=== PATIENT | male | born 1960 | race Caucasian/White ===

== ENCOUNTER 2017-08-30 15:33 | Inpatient (IN) | payer MEDICAID ==
[~2017-08-30] VITALS: Ht 185.4 cm; Wt 84.5 kg
[2017-10-17] VITALS (11 sets, daily range): BP systolic 96–139; BP diastolic 40–80; PULSE 71–100; TEMP 97.8–982
[2017-10-17] MEDS ORDERED: ASPIRIN 81M81 MG/TA2 PO (05:57)
[2017-10-17] MEDS ORDERED: LIPITOR 80MG80 MG PO (05:58)
[2017-10-17] MEDS ORDERED: AMOXICILLIN 8751 TAB PO (05:58)
[2017-10-17] MEDS ORDERED: CELEBREX 200MG200 MG PO (05:59)
[2017-10-17] MEDS ORDERED: LASIX 20MG TABL20 MG PO (05:59)
[2017-10-17] MEDS ORDERED: LIORESAL20 MG PO (05:59)
[2017-10-17] MEDS ORDERED: TOPROL XL 25MG25 MG PO (06:00)
[2017-10-17] MEDS ORDERED: NEURONTIN600 MG/TAB PO (06:00)
[2017-10-17] MEDS ORDERED: DAZIDOX20 MG PO (06:01)
[2017-10-17] MEDS ORDERED: OXYCONTIN 20MG20 MG PO (06:01)
[2017-10-17] MEDS ORDERED: PLAVIX 75MG TAB75 MG PO (06:02)
[2017-10-17] MEDS ORDERED: ALDACTONE 25MG25 M1 PO (06:02)
[2017-10-17] MEDS ORDERED: ZOFRAN 4MG T4 MG/TAB PO (06:03)
[2017-10-18 03:49] VITALS: BP 113/51; PULSE 91; TEMP 99.5
[2017-10-18 06:25] LABS: HEMOGLOBIN 10.7 g/dl (13.5-18.0)
[2017-10-18 06:44] LABS: HEMATOCRIT 35.2 % (42.0-52.0)
[2017-10-18 07:40] VITALS: BP 103/51; PULSE 84; TEMP 99.3
[2017-10-18 11:55] VITALS: BP 99/47; PULSE 58; TEMP 98.1
[2017-10-18 16:35] VITALS: BP 102/57; PULSE 69; TEMP 98.7
[2017-10-18 19:52] VITALS: BP 102/53; PULSE 65; TEMP 98.1
[2017-10-19 03:57] VITALS: BP 106/49; PULSE 60; TEMP 98.3
[2017-10-19 07:16] LABS: HEMOGLOBIN 10.4 g/dl (13.5-18.0)
[2017-10-19 07:20] LABS: HEMATOCRIT 34.1 % (42.0-52.0)
[2017-10-19 07:44] VITALS: BP 107/65; PULSE 70; TEMP 98
[2017-10-19 12:05] VITALS: BP 119/76; PULSE 72; TEMP 98.1
[2017-10-19] MEDS ORDERED: ZANAFLEX CAPSULE4 MG PO (14:13)
[2017-10-19 15:44] VITALS: BP 111/64; PULSE 74; TEMP 98
== END 2017-10-19 17:12 | disposition home or self-care (01) | DRG 498 ==
LOC: JCC 10-17 05:08 → SURG 10-17 07:30 → JCC 10-19 17:12
PROVIDERS: Orthopaedic Surgery; Physician Assistant
PROC: 0QB20ZZ Excision of Right Pelvic Bone, Open Approach (ICD-10-PCS; 2017-10-17)
PROC: 0QB60ZZ Excision of Right Upper Femur, Open Approach (ICD-10-PCS; principal; 2017-10-17 07:30)
DX: M86.9 Osteomyelitis, unspecified (principal); L89.314 Pressure ulcer of right buttock, stage 4; G82.20 Paraplegia, unspecified; F17.210 Nicotine dependence, cigarettes, uncomplicated
CPT/HCPCS: J0690; J2704; J3010

== ENCOUNTER → 2017-09-26 | Outpatient (CLI) | payer MEDICAID | LOC: COL.RAD 11:01 | DX: B19.20 Unspecified viral hepatitis C without hepatic coma (principal) ==

== ENCOUNTER 2017-11-21 14:41 | Inpatient (IN) | payer MEDICAID ==
[~2017-11-21] VITALS: Ht 185.4 cm; Wt 90.0 kg
[~2017-11-21 14:41] MED LIST: ALDACTONE 25MG25 M1 PO; AMOXICILLIN 8751 TAB PO; ASPIRIN 81M81 MG/TA2 PO; CELEBREX 200MG200 MG PO; DAZIDOX20 MG PO; LASIX 20MG TABL20 MG PO; LIORESAL20 MG PO; LIPITOR 80MG80 MG PO; NEURONTIN600 MG/TAB PO; OXYCONTIN 20MG20 MG PO; PLAVIX 75MG TAB75 MG PO; TOPROL XL 25MG25 MG PO; ZANAFLEX CAPSULE4 MG PO; ZOFRAN 4MG T4 MG/TAB PO
[2017-12-04] VITALS (11 sets, daily range): BP systolic 82–124; BP diastolic 42–69; PULSE 56–97; TEMP 98–99.4
[2017-12-04 12:56] LABS: HEMATOCRIT 38.4 % (42.0-52.0); HEMOGLOBIN 11.9 g/dl (13.5-18.0)
[2017-12-04 13:10] LABS: CALCIUM 9.1 mg/dL (8.4-10.2); CREATININE, serum 0.6 mg/dL (0.66-1.25); POTASSIUM 4.4 mmol/L (3.4-5.0)
[2017-12-04] MEDS ORDERED: DAZIDOX20 MG PO (13:56)
[2017-12-04] MEDS ORDERED: NEURONTIN600 MG/TAB PO (13:57)
[2017-12-04] MEDS ORDERED: LIPITOR 80MG80 MG PO (13:57)
[2017-12-04] MEDS ORDERED: LIORESAL20 MG PO (13:58)
[2017-12-04] MEDS ORDERED: OXYCONTIN30 MG PO (13:59)
[2017-12-04] MEDS ORDERED: ALDACTONE 25MG25 M1 PO (14:00)
[2017-12-04] MEDS ORDERED: CELEBREX 200MG200 MG PO (14:03)
[2017-12-04] MEDS ORDERED: TOPROL XL 25MG25 MG PO (14:06)
[2017-12-04] MEDS ORDERED: LASIX 20MG TABL20 MG PO (14:07)
[2017-12-04] MEDS ORDERED: PLAVIX 75MG TAB75 MG PO (14:07)
[2017-12-04] MEDS ORDERED: ZANAFLEX 4MG TAB4 MG PO (14:09)
[2017-12-04] MEDS ORDERED: MIRALAX PA17 GM/Dose PO (14:10)
[2017-12-04] MEDS ORDERED: ASPIRIN 81M81 MG/TA2 PO (14:11)
[2017-12-04] MEDS ORDERED: ATROVENT INHALE14 GM IH (14:12)
[2017-12-05 04:00] VITALS: BP 117/55; PULSE 80; TEMP 97.7
[2017-12-05 07:39] VITALS: BP 116/59; PULSE 70; TEMP 98.3
[2017-12-05 12:42] VITALS: BP 128/56; PULSE 64; TEMP 98.2
[2017-12-05 16:53] VITALS: BP 118/57; PULSE 63; TEMP 98.7
[2017-12-05 21:07] VITALS: BP 100/53; PULSE 62; TEMP 98.7
[2017-12-06 04:19] VITALS: BP 121/57; PULSE 57; TEMP 98.3
[2017-12-06 07:38] VITALS: BP 128/65; PULSE 70; TEMP 97.5
== END 2017-12-06 10:12 | disposition home or self-care (01) | DRG 939 ==
LOC: INPTSU 12-04 11:37 → SURG 12-04 13:30
PROVIDERS: Nurse Anesthetist, Certified Registered; Surgery
PROC: 0D1N4Z4 Bypass Sigmoid Colon to Cutaneous, Percutaneous Endoscopic Approach (ICD-10-PCS; 2017-12-04)
PROC: 0DBM4ZZ Excision of Descending Colon, Percutaneous Endoscopic Approach (ICD-10-PCS; principal; 2017-12-04 13:30)
DX: Z46.89 Encounter for fitting and adjustment of other specified devices (principal); L89.314 Pressure ulcer of right buttock, stage 4; G82.20 Paraplegia, unspecified
CPT/HCPCS: J0690; J1100; J1170; J1885; J2405; J2704; J3010; J7030; J7120

== ENCOUNTER 2019-01-21 12:47 | Day surgery (SDC) | payer MEDICAID ==
[~2019-01-21] VITALS: Ht 185.4 cm; Wt 93.2 kg
[~2019-01-21 12:47] MED LIST changes: +ATROVENT I0.2 MG/1 M IH; +MIRALAX PA17 GM/Dose PO; +OXYCONTIN30 MG PO; +PRILOSEC 20MG20 MG PO; +ZANAFLEX 4MG TAB4 MG PO
[2019-01-21] MEDS ORDERED: AMOXICILLIN 8751 TAB PO (13:28)
[2019-01-21] MEDS ORDERED: OMNICEF 300MG300 MG PO (13:29)
[2019-01-21] MEDS ORDERED: MONODOX100 PO (13:30)
[2019-01-21] MEDS ORDERED: LEVAQUIN 750MG750 M1 PO (13:32)
[2019-01-21] MEDS ORDERED: BACTROBAN22 TOP (13:34)
[2019-01-21] MEDS ORDERED: DITROPAN XL10 MG PO (13:35)
[2019-01-21] MEDS ORDERED: NICODERM C14 MG/PATC TD (13:37)
[2019-01-21 13:55] VITALS: BP 138/65; PULSE 77; TEMP 99
[2019-01-21 16:05] VITALS: BP 147/95; PULSE 70; TEMP 97.8
--- NOTE | 2019-01-21 16:05 | NUR ---
Patient brought back to bay 7 via cart from PACU. Placed on monitors, vital signs stable on room air. Denies pain or nausea. Suprapubic catheter in place, draining bloody tinged urine. Some blood noted to split gauze at site. Requesting soda, muffin, and apple sauce. Safety maintained, call sims within reach, will continue to monitor.
[2019-01-21 16:20] VITALS: BP 158/89; PULSE 87
--- NOTE | 2019-01-21 16:20 | NUR ---
Patient tolerating food and drink without difficulty. Vital signs stable. Will conitnue to monitor.
[2019-01-21 16:25] VITALS: BP 134/68; PULSE 89
[2019-01-21 16:28] VITALS: TEMP 98.7
[2019-01-21 16:40] VITALS: BP 132/66; PULSE 85
--- NOTE | 2019-01-21 17:00 | NUR ---
Discharge instructions reviwed with patient and friend. All questions answered. Some drainage noted around penis and catheter. New split gauze applide. Urine draining into bag. Patient to get dressed at this time.
--- NOTE | 2019-01-21 17:43 | NUR ---
Patient brought down to lobby via wheel chair. Transfered to car with one assist. To be driven home by friend Briseyda.
[2019-01-22] VITALS (376 sets, daily range): O2SAT 79–99
[2019-01-23] VITALS (716 sets, daily range): O2SAT 68–100
== END 2019-01-21 17:43 | disposition home or self-care (01) ==
LOC: SDCO 12:47
DX: N31.2 Flaccid neuropathic bladder, not elsewhere classified (principal); N39.42 Incontinence without sensory awareness; L89.101 Pressure ulcer of unspecified part of back, stage 1; F41.9 Anxiety disorder, unspecified; F32.9 Major depressive disorder, single episode, unspecified; J44.9 Chronic obstructive pulmonary disease, unspecified; G82.20 Paraplegia, unspecified; N52.9 Male erectile dysfunction, unspecified; F17.210 Nicotine dependence, cigarettes, uncomplicated; I25.10 Atherosclerotic heart disease of native coronary artery without angina pectoris; I25.2 Old myocardial infarction; E78.5 Hyperlipidemia, unspecified; G89.29 Other chronic pain; Z86.73 Personal history of transient ischemic attack (TIA), and cerebral infarction without residual deficits; Z95.5 Presence of coronary angioplasty implant and graft; Z88.1 Allergy status to other antibiotic agents; Z80.9 Family history of malignant neoplasm, unspecified; Z88.2 Allergy status to sulfonamides; Z96.642 Presence of left artificial hip joint; Z93.3 Colostomy status; Z79.82 Long term (current) use of aspirin; Z79.02 Long term (current) use of antithrombotics/antiplatelets
CPT/HCPCS: C1769; J0690; J1100; J1885; J2405; J2704; J3010

== ENCOUNTER 2019-01-22 08:42 | Inpatient (IN) | payer MEDICAID ==
[2019-01-22] VITALS (13 sets, daily range): BP systolic 110–158; BP diastolic 53–93; PULSE 86–109; TEMP 97.3–99.7
[~2019-01-22] VITALS: Ht 185.4 cm; Wt 83.9 kg
[~2019-01-22 08:42] MED LIST changes: +BACTROBAN22 TOP; +DITROPAN XL10 MG PO; +LEVAQUIN 750MG750 M1 PO; +MONODOX100 PO; +NICODERM C14 MG/PATC TD; +OMNICEF 300MG300 MG PO
--- NOTE | 2019-01-22 10:50 | NUR ---
Admitted to ICU 2 via EMS from [facility]. Patient opens eyes when name called, just yells "Why am I here?" over and over, does not answer questions appropriately. Settled into bed and monitors applied. Call light in reach. Admission assessment per Radha Modi RN
--- NOTE | 2019-01-22 11:35 | NUR ---
Patient has 3 wounds to buttocks. Repositioned and dressings changed and cultures obtained at this time. Left buttocks wound [id number] with 5.5cm tunneling at 1200 position. Stage 4. Wound bed pink with moderate amount of think, white/green drainage on old dressing. Wet to dry dressing placed at this time. Right proximal buttocks wound [id number], stage 4. Wound bed red, with white discoloration around entire edge of wound. Moderate amout of think, white/green drainage on old dressing. Wet to dry dressing placed at this time. Right distal buttocks would 2.5cmx2.5cm, stage 2. Skin intact on medial side, loose on lateral side with small amout of scabbing noted. No drainage noted, covered with mepilex.
[2019-01-22 12:47] LABS: HEMATOCRIT 37.7 % (42.0-52.0); HEMOGLOBIN 11.7 g/dl (13.5-18.0); MEAN CELL VOLUME 75 fl (80.0-100.0); MEAN CORPUSCULAR HEMOGLOBIN 23 pg (27.0-31.0); MEAN CORPUSCULAR HGB CONC 31 g/dl (33.0-37.0); MEAN PLATELET VOLUME 8.9 fl (7.4-10.4); PLATELET COUNT 415 K/mm3 (130-400); RED BLOOD COUNT 5.03 M/mm3 (4.20-5.60); REDCELL DISTRIBUTION WIDTH-CV 18.8 % (11.5-14.5)
[2019-01-22 12:53] LABS: ALBUMIN 2.7 gm/dL (3.5-5.0); BILIRUBIN,TOTAL 1.1 mg/dL (0.0-1.0); CALCIUM 8.9 mg/dL (8.4-10.2); CREATININE, serum 0.86 (0.66-1.25); POTASSIUM 4.5 mmol/L (3.4-5.0); TOTAL PROTEIN 6.5 gm/dL (6.4-8.2)
[2019-01-22 13:00] LABS: TRICYCLIC ANTIDEPRESS URINE NEGATIVE
[2019-01-22 13:18] LABS: BAND 64 % (0-10); LYMPHOCYTE 10 % (20.0-51.0); NEUTROPHILS 23 % (42.0-75.2); PLATELET ESTIMATE INCREASED (NORMAL)
[2019-01-22 13:19] LABS: ANISOCYTOSIS 1+; HYPOCHROMIA 2+; MICROCYTOSIS 1+; TARGET CELLS 1+
--- NOTE | 2019-01-22 17:08 | NUR ---
Vancomycin Initial Dosing Pharmacy Note Ordering provider: Arnie Indication/duration: Sepsis LABS: est Crcl of 85 mL/min Recommendation: 1.25 g IV q 8hr, will follow daily carlo broussard trough on 01/24. Loading dose: 1.75 grams Maintenance dose: 1.25 grams every 8 hours Trough goal: 15-20 ug/mL
--- NOTE | 2019-01-22 17:50 | NUR ---
PATIENT ANSWER SOME QUESTIONS STILL HAS OUT BURST YELLING
--- NOTE | 2019-01-22 17:50 | NUR ---
PATIENT IS STILL IN A CONFUSED STATE, HAS LOUD VOICE, SUSAN FOR HELP REPEATS
--- NOTE | 2019-01-22 18:05 | NUR ---
PATIENT REMAINS CONFUSED ABOUT PAIN YELLING FOR SISTER
--- NOTE | 2019-01-22 18:15 | NUR ---
PATIENT CALMER SLEEPS MORE AWKENS EASILY, AT TIME YELLS FOR SISTER
--- NOTE | 2019-01-22 18:50 | NUR ---
PATIENT IS QUIET, RESTING
--- NOTE | 2019-01-22 19:05 | NUR ---
RECEIVED REPORT FROM PACO PIEDRA.
--- NOTE | 2019-01-22 21:00 | NUR ---
Patient is moaning in pain intermittently during assessment, although patient is unable to rate pain on a scale of 1-10. Patient is still very confused and disoriented at this time. Patient currently has morphine MC KAY STITCHER pump ordered and at bedside for pain management. Patient is educated on MC KAY STITCHER pump and remote is placed in patient's hand. Vitals at this time are within normal limits. Abdomonal dressing is clean, dry, and intact. Colostomy stoma is pink; no drainage noted at this time. Patient's suprapubic catheter is dependently draining at the bedside. Output is roberto/yellow in color and slightly cloudy. SCDs are in place and functioning properly. Patient's peripheral IV in the left hand is discontinued due to placement of a central line in the RIJ. A second peripheral line is in the right forearm, which is flushed per protocol and left in place. An art line is present in the left wrist. Patient has three ulcers to the bottom; a stage 4 to the left buttock, a stage 3 to the right buttock, and also a stage 2 to the right buttock, all of which are covered with dressings and are clean, dry, and intact. Both feet have some slight edema. No further skin issues noted at this time. Will contact provider for possible pain management alternative until the patient is more alert and oriented to function of MC KAY STITCHER pump. Will continue to monitor.
[2019-01-22 22:03] LABS: ARTERIAL BLD GAS O2 SATURATION 90.2 % (92-100); ARTERIAL BLD GAS TCO2 CT 24.1; ARTERIAL BLOOD GAS BASE EXCESS -0.5 (-2-2); ARTERIAL BLOOD GAS PCO2 34.2 mmHg (35-45); ARTERIAL BLOOD GAS pH 7.45 (7.35-7.45)
[2019-01-23] VITALS (8 sets, daily range): BP systolic 136–163; BP diastolic 63–84; PULSE 92–106; TEMP 98.4–99.7
--- NOTE | 2019-01-23 | NUR ---
Patient is slowly becoming more alert and oriented. With increased orientation, patient's expressions of pain occur more frequently. Patient continues to yell out in pain, stating pain is either in neck, legs, bottom, or abdomen. Kelsie notified; received orders to initiate basal rate on morphine PHYSICIAN SCIENTIST.
[2019-01-23 04:54] LABS: MEAN CELL VOLUME 74 fl (80.0-100.0); MEAN CORPUSCULAR HGB CONC 32 g/dl (33.0-37.0); MEAN PLATELET VOLUME 8.7 fl (7.4-10.4); PLATELET COUNT 357 K/mm3 (130-400); RED BLOOD COUNT 4.22 M/mm3 (4.20-5.60); REDCELL DISTRIBUTION WIDTH-CV 18.5 % (11.5-14.5)
[2019-01-23 04:55] LABS: HEMATOCRIT 31.1 % (42.0-52.0); HEMOGLOBIN 9.9 g/dl (13.5-18.0); MEAN CORPUSCULAR HEMOGLOBIN 23 pg (27.0-31.0)
[2019-01-23 05:01] LABS: ALBUMIN 2.3 gm/dL (3.5-5.0); BILIRUBIN,TOTAL 0.8 mg/dL (0.0-1.0); CALCIUM 8.2 mg/dL (8.4-10.2); CREATININE, serum 0.59 (0.66-1.25); MAGNESIUM 1.7 mg/dL (1.6-2.3); PHOSPHOROUS 2.9 mg/dL (2.5-4.5); POTASSIUM 4.2 mmol/L (3.4-5.0); TOTAL PROTEIN 5.7 gm/dL (6.4-8.2)
[2019-01-23 05:32] LABS: ARTERIAL BLD GAS O2 SATURATION 91.1 % (92-100); ARTERIAL BLD GAS TCO2 CT 23.5; ARTERIAL BLOOD GAS BASE EXCESS -1.8 (-2-2); ARTERIAL BLOOD GAS HCO3 22.4 meq/L (22-26); ARTERIAL BLOOD GAS PCO2 35.6 mmHg (35-45); ARTERIAL BLOOD GAS PO2 62.4 mmHg (80-100); ARTERIAL BLOOD GAS pH 7.42 (7.35-7.45)
[2019-01-23 05:33] LABS: ANISOCYTOSIS 2+; BAND 31 % (0-10); BURR CELLS 1+; HYPOCHROMIA 2+; LYMPHOCYTE 6 % (20.0-51.0); MICROCYTOSIS 1+; NEUTROPHILS 61 % (42.0-75.2); PLATELET ESTIMATE NORMAL (NORMAL)
--- NOTE | 2019-01-23 05:50 | NUR ---
Patient is now more alert and oriented x 3. Patient has increased complaints of pain. Patient is capable of using numeric pain scale at this point and rates pain as 10/10 in abdomen. Morphine MOTOR VEHICLE COMPLIANCE ANALYST dose is changed to 1.5 mg every six minutes per Kelsie's orders.
--- NOTE | 2019-01-23 07:05 | NUR ---
Report given to PACO Smith.
--- NOTE | 2019-01-23 07:37 | NUR ---
Report received from Zari ANTONIO and care resumed.
--- NOTE | 2019-01-23 09:14 | NUR ---
Dr Arnold in to see pt at this time.
--- NOTE | 2019-01-23 09:45 | NUR ---
Dr Soto and Dr Saba in to see pt.
--- NOTE | 2019-01-23 10:50 | NUR ---
Dr Klein in to see pt at this time.
--- NOTE | 2019-01-23 15:30 | NUR ---
PATIENT ARRIVED TO ROOM 326 FROM ICU. PATIENT SETTELED INTO ROOM.
--- NOTE | 2019-01-23 15:43 | NUR ---
Report called to Yaneth ANTONIO on surgical floor. Pt taken by bed with chart and belongings to room 326. Update given.
--- NOTE | 2019-01-23 16:00 | NUR ---
SEE SHIFT ASSESSMENT.
--- NOTE | 2019-01-23 19:48 | NUR ---
Pt resting in bed. No distress noted. Rating pain 2-3/10 in abdomen. SALES EXPERT pump with basal rate infusing to R IJ TL central line. Suprapubic catheter and allen catheter to dependent drainage. Pt has midline abdominal incision with mahendra intact. Stage IV pressure ulcer noted to L buttock with tunneling- leaking purulent draining. Dressing changed. Pt turned. Pressure ulcers x2 on R buttock with intact dressings. Respirations even and unlabored. Lungs clear. O2@2L via NC- 93%. EtCO2 WNL. VSS. Pt is alert and oriented at this time, but does have periods of confusion. 2+ edema noted to bilateral feet. 1+ edema in BLE. Pulses equal. No further needs noted.
--- NOTE | 2019-01-23 20:18 | NUR ---
Pts PCS syringe changed. Pt reufuses to be turned at this time.
[2019-01-24] VITALS (10 sets, daily range): BP systolic 129–156; BP diastolic 62–81; PULSE 71–94; TEMP 98.2–99.5
--- NOTE | 2019-01-24 | NUR ---
Oral suctioning set up by RT to manage pts secretions.
--- NOTE | 2019-01-24 06:11 | NUR ---
Pt resting this AM. He has had minimal sleep throughout the night. He is alert and able to answer orientation questions but often gets confused at times. Pt pushed REGISTRAR ASSISTANT pump button less in the second half the shift, after he allowed us to turn him on his side. Denies further needs.
[2019-01-24 06:49] LABS: MEAN CELL VOLUME 75 fl (80.0-100.0); MEAN CORPUSCULAR HGB CONC 31 g/dl (33.0-37.0); PLATELET COUNT 341 K/mm3 (130-400); RED BLOOD COUNT 4.12 M/mm3 (4.20-5.60); REDCELL DISTRIBUTION WIDTH-CV 18.3 % (11.5-14.5)
[2019-01-24 06:52] LABS: HEMATOCRIT 30.7 % (42.0-52.0); HEMOGLOBIN 9.5 g/dl (13.5-18.0); MEAN CORPUSCULAR HEMOGLOBIN 23 pg (27.0-31.0)
[2019-01-24 07:03] LABS: ALBUMIN 2.3 gm/dL (3.5-5.0); BILIRUBIN,TOTAL 0.8 mg/dL (0.0-1.0); CALCIUM 8.4 mg/dL (8.4-10.2); CREATININE, serum 0.5 (0.66-1.25); POTASSIUM 3.6 mmol/L (3.4-5.0); TOTAL PROTEIN 5.7 gm/dL (6.4-8.2)
[2019-01-24 07:30] LABS: ANISOCYTOSIS 1+; BAND 33 % (0-10); BURR CELLS 1+; LYMPHOCYTE 7 % (20.0-51.0); NEUTROPHILS 56 % (42.0-75.2); PLATELET ESTIMATE NORMAL (NORMAL)
--- NOTE | 2019-01-24 10:11 | NUR ---
Vancomycin Follow-up Pharmacy Note Current regimen: VANCO 1.25G Q8H Vancomycin trough: 12.7 Adjustments: GOAL TROUGH 15-20. INCREASE TO VANCO 1.5G Q8H. TROUGH 01/25 @ 1745
--- NOTE | 2019-01-24 13:45 | NUR ---
ASHA met with the patient and his sister, Cindy to discuss a discharge plan. The patient lives alone in [place]. 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 The patient reports he receives care from a private duty person, Merly Mcintosh and Ashu Panda visits patient 2x a day to help with exercises. Ashu Larios is not a physical therapist. The patient's PCP is Dr. Danielle and patient receives medications from Lisa Riojas. Patient reports that Merly picks up his medications and can insurance covers his medications The patient reports he has support from [employer] for his wheelchair as needed. The patient reports he goes the [facility] 3x a week for wound care. PT/OT at the very least recommend home health but SNF would be preferred. The patient refused both. He reports he as plenty of help. However, the patient did inquire about weekend help at home. The patient has a POC named Ainsley at [address] [place] [address]. The patient is interested in connecting his caregiver, Merly connect with them. ASHA attempted to contact [address] [place] [address], they were closed this day, left message. services executive will continue to follow to ensure a safe discharge.
--- NOTE | 2019-01-24 20:25 | NUR ---
Lying in bed on right side. Has pain in back, chronic issue for patient. Explained use of MARINA DRY DOCK MANAGER pump to help decrease pain. Dressing to bilat buttocks stage 4 pressure ulcers CDI. Buttocks red. 2-3+ bilt LE extremity edema noted. Mid abd incision with edges well approximated, dressing to suprapubic catheter area CDI. Suprapubic and ureteral catheters patent draining clear yellow urine. Patient denies further needs at this time.
--- NOTE | 2019-01-24 23:00 | NUR ---
Lying in bed with eyes open. Patient looking for a "plastic piece" that he thought was on his bedside table. No plastic piece seen. Patient able to tell me who he is, where he is at, and approximate date. Vital signs obtained and normal, patient able to look at machine and read off all vitals and say that they look good. Complains of pain, 10/10 in back that he describes as sharp. Reminded the patient that he does have his LAWN MOWER REPAIRER that he can use for pain. Patient presses button at this time. Suprapubic and ureteral catheters patent draining clear yellow urine. Placed wash cloth under tubing per patient request so that the tubing was not pressing into leg. Offered to place pillow between legs but patient declines. Does not want to resposition. Patient denies further needs at this time.
[2019-01-25] VITALS (8 sets, daily range): BP systolic 152–172; BP diastolic 70–97; PULSE 84–95; TEMP 98.1–99.6
--- NOTE | 2019-01-25 01:47 | NUR ---
Lying in bed with eyes closed. Open eyes and says that he heard someone in his room. Explain to the patient that I was just hanging his antibiotic. Patient asks what happened that he is in the hospital and the need to be on antibiotics. Explain to the patient the course of events that lead to hospitalization and why he is receiving antibiotics. Patient verbalizes understanding and says that he remembers some of it but not all. Denies further needs at this time.
--- NOTE | 2019-01-25 05:09 | NUR ---
Lying in bed with eyes closed. Eyes open when patient hears nurse in room. Patient continues to complain of pain in back and was encouraged to use CHIROPRACTIC PRACTICE MANAGER. Respositioned patient in bed. Suprapubic and urethral catheters patent draining clear yellow urine. Patient alert and oriented but says he continues to feel a plastic piece, attempts to show nurse plastic between fingers and there is nothing there, describes it as a plastic string. Explained that the morphine can sometimes have this effect on patients. Patient denies further needs at this time.
[2019-01-25 07:03] LABS: MEAN CELL VOLUME 74 fl (80.0-100.0); MEAN CORPUSCULAR HGB CONC 31 g/dl (33.0-37.0); MEAN PLATELET VOLUME 8.9 fl (7.4-10.4); PLATELET COUNT 353 K/mm3 (130-400)
[2019-01-25 07:08] LABS: HEMATOCRIT 31.9 % (42.0-52.0); HEMOGLOBIN 9.8 g/dl (13.5-18.0); MEAN CORPUSCULAR HEMOGLOBIN 23 pg (27.0-31.0)
[2019-01-25 07:13] LABS: ALBUMIN 2.2 gm/dL (3.5-5.0); BILIRUBIN,TOTAL 1.1 mg/dL (0.0-1.0); CALCIUM 7.9 mg/dL (8.4-10.2); CREATININE, serum 0.5 (0.66-1.25); POTASSIUM 3.1 mmol/L (3.4-5.0); TOTAL PROTEIN 5.6 gm/dL (6.4-8.2)
[2019-01-25 08:17] LABS: BAND 18 % (0-10); EOSINOPHIL 1 % (0-4); LYMPHOCYTE 5 % (20.0-51.0); NEUTROPHILS 73 % (42.0-75.2)
[2019-01-25 08:18] LABS: ANISOCYTOSIS 1+; HYPOCHROMIA 1+; PLATELET ESTIMATE NORMAL (NORMAL)
--- NOTE | 2019-01-25 10:10 | NUR ---
Patient alert and oriented, answers questions appropriately. See assessment. Abdomen soft, non tender, non distended. Bowel sounds hyperactive x4 quads. +Flatus. +Stool in ostomy. Supra pubic catheter in place, dressing changed. No redness or drainage at suprapubic site. Midline incision with edges well approximated, mahendra intact. No redness or drainage at incision site. Ostomy site pink and protruding. Tello catheter in place and draining clear yellow urine. Decubitus ulcer to left buttock with pink granulation tissue noted, dressing changed. Mepilex applied to coccyx and right buttock. Right IJ with dressing intact, ports x3 flush well, blood return noted. SPRING COVERER infusing, settings verified against MAR. No c/o at this time.
--- NOTE | 2019-01-25 20:15 | NUR ---
Patient in bed, lying on right side. HS meds given at this time. Suprapubic drsg changed at this time. Colostomy bag changed at shift change, soft brown stool noted. Harper to midline, HOGSHEAD STOCK CLERK. Tello to BSD with yellow urine. Patient is a paraplegic. Has pitting edema to bilateral lower legs to feet. Drsg to left buttock intact. Has right IJ with LR infusing at 100cc/hr without redness or swelling. All three lumens flushed with good blood return. Patient is alert and oriented.
[2019-01-26] VITALS (7 sets, daily range): BP systolic 126–155; BP diastolic 61–91; PULSE 65–110; TEMP 98.1–99.2
--- NOTE | 2019-01-26 00:39 | NUR ---
Medicated with Oxycodone 10mg po for back pain. Asks when he will get regular food, provided with ice cream at this time.
--- NOTE | 2019-01-26 03:00 | NUR ---
Pt resting quietly at this time.
[2019-01-26 06:30] LABS: BASO % 0.1 % (0.0-2.0); EOS # 0.7 (0.0-0.7); EOS % 4.2 % (0-4.0); GRAN # 11.5 (1.4-6.5); GRAN % 74.9 % (42.2-75.2); HEMOGLOBIN 10.2 g/dl (13.5-18.0); LYMPH # 1.8 (1.2-3.4); LYMPH % 11.4 % (20.0-51.0); MEAN CELL VOLUME 74 fl (80.0-100.0); MEAN CORPUSCULAR HEMOGLOBIN 23 pg (27.0-31.0); MEAN CORPUSCULAR HGB CONC 31 g/dl (33.0-37.0); MONO # 1.3 (0.1-0.6); MONO % 8.6 % (1.7-9.3); PLATELET COUNT 391 K/mm3 (130-400); RED BLOOD COUNT 4.44 M/mm3 (4.20-5.60); REDCELL DISTRIBUTION WIDTH-CV 18.4 % (11.5-14.5)
[2019-01-26 06:42] LABS: ALBUMIN 2.2 gm/dL (3.5-5.0); BILIRUBIN,TOTAL 0.8 mg/dL (0.0-1.0); CREATININE, serum 0.6 (0.66-1.25); POTASSIUM 3.4 mmol/L (3.4-5.0); TOTAL PROTEIN 5.6 gm/dL (6.4-8.2)
--- NOTE | 2019-01-26 10:34 | NUR ---
Patient alert and oriented, answers questions appropriately. See assessment. RIJ in place, dressing intact, good blood return noted x3 lumens. Abdomen soft, non tender, non distended. Bowel sounds hyperactive x4 quads. Midline incision with mahendra intact, no redness or drainage noted. Ostomy site pink and protruding. Suprapubic site with no redness or drainage noted, dressing changed. Suprapubic catheter draining clear yellow urine. Tello catheter in place and draining clear yellow urine. Mepilex in place to coccyx and bilateral buttocks, refuses them to be changed at this time. No c/o at this time.
--- NOTE | 2019-01-26 14:39 | NUR ---
Dr Peña notified of consult.
--- NOTE | 2019-01-26 17:55 | NUR ---
Tello catheter discontinued per drs order.
--- NOTE | 2019-01-26 19:55 | NUR ---
Patient awakens and begins to complain of neck, back and stomach pain. Whimpering and asking for meds. Given scheduled meds at this time. Offered to reposition patient which he refuses at this time. Drsg changed to right neck IJ, all lumens flushed with good blood return. Dressing changed to left suprapubic, minimal drainage noted, site without redness. [place] intact to midline incision, COAL YARD SUPERVISOR. Colostomy with soft brown stool noted. Suprapubic output roberto, clear urine.
--- NOTE | 2019-01-26 21:35 | NUR ---
Has moderate amount of green emesis. Medicated with Zofran at this time.
--- NOTE | 2019-01-26 21:51 | NUR ---
SPOKE WITH DR ALBRECHT REGARDING PATIENT HAVING EMESIS, ORDER TO DECREASE DIET BACK TO FULL LIQUID.
--- NOTE | 2019-01-26 22:30 | NUR ---
Pt finally ready to turn on right side. Mepilex replaced to left buttock decub due to drainage.
--- NOTE | 2019-01-27 00:27 | NUR ---
Patient awake, whimpering and thinks he might throw up again. Emharsh treviño provided, HOB elevated.
--- NOTE | 2019-01-27 01:08 | NUR ---
medicated with Oxycodone 10mg po for abd pain 11/05.
--- NOTE | 2019-01-27 02:00 | NUR ---
Patient assisted to sitting up position in bed. Reports pain in stomach feels like he needs to eat. Advised against any food at this time as he has had emesis and persistent nausea this shift. Ice chips provided.
--- NOTE | 2019-01-27 02:49 | NUR ---
Discouraged anything by mouth than ice chips. Bowel sounds hypoactive, there is stool in colostomy bag.
[2019-01-27 03:37] VITALS: BP 151/85; PULSE 98; TEMP 98.4
--- NOTE | 2019-01-27 03:43 | NUR ---
Patient falling asleep sitting up in bed. Has 30cc of bile emesis at this time.
--- NOTE | 2019-01-27 05:40 | NUR ---
Medicated with Oxycodone 10mg po with Protonix po. Rates pain 8/10 to abdomen with burning sensation.
[2019-01-27 07:20] VITALS: BP 150/79; PULSE 87; TEMP 97.9
[2019-01-27 07:30] LABS: HEMOGLOBIN 10.7 g/dl (13.5-18.0); MEAN CELL VOLUME 75 fl (80.0-100.0); MEAN CORPUSCULAR HEMOGLOBIN 23 pg (27.0-31.0); MEAN CORPUSCULAR HGB CONC 30 g/dl (33.0-37.0); MEAN PLATELET VOLUME 8.9 fl (7.4-10.4); PLATELET COUNT 374 K/mm3 (130-400); RED BLOOD COUNT 4.71 M/mm3 (4.20-5.60); REDCELL DISTRIBUTION WIDTH-CV 18.7 % (11.5-14.5)
[2019-01-27 07:42] LABS: CALCIUM 8.3 mg/dL (8.4-10.2); CREATININE, serum 0.7 (0.66-1.25); POTASSIUM 3.4 mmol/L (3.4-5.0)
[2019-01-27 07:43] LABS: HEMATOCRIT 35.2 % (42.0-52.0)
--- NOTE | 2019-01-27 08:00 | NUR ---
PATIENT IS ORIENTED BUT DROWSY. VSS. PATIENT TAKES SCHEDULED PAIN MEDS FOR CHRONIC PAIN AND IS OFTEN DROWSY. PATIENT IS A PARAPLEGIC WITH STAGE 4 COCCYX SORE WITH MEPILEX DRESSING INPLACE. CHRONIC SUPERPUBIC MORSE TO DD WITH FLORA, SEDIMENT URINE NOTED. RIGHT IJ TO INT. PATIENT GETTING IV ABX, SEE APR. COLOSTOMY IN MOD AMOUNTS OF SOFT FORMED STOOL NOTED. PATIENT IS HEP C POSITIVE. SR ON TELE IN 80'S. PT/OT/ST. PATIENT NEEDS TURNED BUT OFTEN REFUSES CERTAIN CARES. PATIENT IS STUBBORN AT TIMES. VOMITED 1800CC OF DARK GREEN BILE. PHYSICIAN NOTIFIED. SEE ORDERS.
[2019-01-27 08:49] LABS: EOSINOPHIL 5 % (0-4); LYMPHOCYTE 5 % (20.0-51.0); NEUTROPHILS 81 % (42.0-75.2)
[2019-01-27 08:50] LABS: BURR CELLS 2+
[2019-01-27 08:51] LABS: HYPOCHROMIA 2+; POIKILOCYTOSIS 2+
[2019-01-27 08:52] LABS: ANISOCYTOSIS 1+; MICROCYTOSIS 1+; OVALOCYTES 1+; PLATELET ESTIMATE NORMAL (NORMAL)
--- NOTE | 2019-01-27 09:35 | NUR ---
HOSPITALIST CARE TEAM ROUNDING. SEE ORDERS.
[2019-01-27 11:53] VITALS: BP 143/81; PULSE 102; TEMP 98.1
[2019-01-27 16:00] VITALS: BP 139/51; PULSE 86; TEMP 98.5
--- NOTE | 2019-01-27 16:40 | NUR ---
TALKING WITH PATIENT ON PHONE ABOUT CT RESULTS. SEE ORDERS.
--- NOTE | 2019-01-27 17:00 | NUR ---
CALLED PATIENTS SISTER AND GAVE PATIENT STATUS UPDATE. ANSWERED QUESTIONS.
--- NOTE | 2019-01-27 19:30 | NUR ---
Report received. Assumed care for quarantine inspector. A&Ox3. Assessment complete. VS stable. Denies pain but currently has vomitted 50mls dark green fluid. Central line to right IJ infusing LR@75ml/hr without difficulty. Colostomy with scant amount of dark green fluid. Suprapubic cath with yellow cloudy urine. SCDs bilat. Plan of care discussed for this shift to include NPO/pain control/HS meds. Verbalizes udnerstanding and denies questions or concerns. Call light in reach. Bed in low position/wheels locked. Will monitor.
[2019-01-27 20:00] VITALS: BP 144/99; PULSE 104; TEMP 98.2
--- NOTE | 2019-01-27 21:30 | NUR ---
Dressing to left buttock stage IV decub changed at this time. Noted to have large amount of drainage to old dressing as well as drainage on the chux underneath. New Mirapex dressing applied. Bactriban ointment applied to small dime size wounds to bilat lower extremities. States he wants them covered with bandaids. Done per request. Did refuse HS dose of pain medication stating "Doc thinks this is what is causing my issues so I dont want them." Does deny pain. Will monitor.
[2019-01-27 23:54] VITALS: BP 143/60; PULSE 91; TEMP 98.2
[2019-01-28 03:48] VITALS: BP 137/56; PULSE 93; TEMP 98.3
[2019-01-28 06:19] LABS: MEAN CELL VOLUME 75 fl (80.0-100.0); MEAN CORPUSCULAR HGB CONC 31 g/dl (33.0-37.0); MEAN PLATELET VOLUME 9.1 fl (7.4-10.4); PLATELET COUNT 400 K/mm3 (130-400); RED BLOOD COUNT 4.27 M/mm3 (4.20-5.60); REDCELL DISTRIBUTION WIDTH-CV 18.6 % (11.5-14.5)
[2019-01-28 06:25] LABS: HEMATOCRIT 31.8 % (42.0-52.0); HEMOGLOBIN 9.8 g/dl (13.5-18.0); MEAN CORPUSCULAR HEMOGLOBIN 23 pg (27.0-31.0)
[2019-01-28 06:35] LABS: CREATININE, serum 0.69 (0.66-1.25)
--- NOTE | 2019-01-28 07:00 | NUR ---
Reported onto PACO [place].
[2019-01-28 07:19] LABS: BAND 7 % (0-10); EOSINOPHIL 4 % (0-4); LYMPHOCYTE 10 % (20.0-51.0); NEUTROPHILS 72 % (42.0-75.2); PLATELET ESTIMATE NORMAL (NORMAL)
[2019-01-28 07:30] VITALS: BP 141/74; PULSE 88; TEMP 99.3
--- NOTE | 2019-01-28 08:40 | NUR ---
Patient in bed resting. Alert and oriented x 3. Shift assessment complete. Suprapubic catheter in place to allen with dependent drainage with cloudy yellow urine in bag. Midline and transverse incision with mahendra intact. Bandaids to BLE CDI. Mepliex to left buttock and sacrum in place. Edema to BLE noted. SCDs to BLE. Bowel sounds hypoactive. Patient denies passing gas through colostomy; appliance intact. Denies further needs at this time.
--- NOTE | 2019-01-28 09:00 | NUR ---
Shift assessment completed. Patient stated abdominal pain /. Remains NPO and denies nausea. O2 nasal cannula running at 2L. Central line to right subclavian intact with no signs of phlebitis or infiltration. Tele intact. Hypoactive bowel sounds in all 4 quadrants. Abdominal mahendra CDI. Suprapubic catheter intact with scant red drainage. SCDs to BLE. Edema present in BLE 2+.
--- NOTE | 2019-01-28 09:30 | NUR ---
Patient turned off to right side.
[2019-01-28 10:50] VITALS: BP 140/72; PULSE 87; TEMP 98.1
--- NOTE | 2019-01-28 10:53 | NUR ---
Reported off to PACO [place].
--- NOTE | 2019-01-28 11:25 | NUR ---
Notified Sara ALEXANDER, patients blood sugar is 62, changed fluids per orders. Will continue to monitor.
--- NOTE | 2019-01-28 13:19 | NUR ---
Myesha from wound clinic in to see patient, redressed ulcer to left buttock.
--- NOTE | 2019-01-28 14:08 | NUR ---
Lathe Tender attended clinical rounds with the team. Hospitalist discussed need for post acute rehab and patient is adamant that he will not go to a snf facility but is open to placement at [facility]. SW met with patient and presented Medicare.gov list of snf facilities. Patient states he wants to go to [facility]. SW presented patient choice form and patient selected [facility] and provided signature. SW placed form in chart. SW faxed referral to [facility] and left message for Madhavi, Senior Training And Development Rep at [facility]. SW to continue to follow.
[2019-01-28 16:29] VITALS: BP 139/62; PULSE 111; TEMP 98.8
--- NOTE | 2019-01-28 19:10 | NUR ---
Patient has done well throughout the day. Repositioned patient throughout the day as allowed by patient. Fluids infusing per order to right IJ. Denies further needs at this time. Reported off to shift stacker.
[2019-01-28 19:33] VITALS: BP 138/69; PULSE 102; TEMP 100.4
--- NOTE | 2019-01-28 19:50 | NUR ---
Pt had Vanc level of 31.69, called lab and they came to re-draw. Will await results and notify pharmacy
--- NOTE | 2019-01-28 20:55 | NUR ---
Pt resting in bed. Does c/o back pain. PRN oxy given along with other PM meds. Alert and oriented with VSS. Has pressure ulcer on L buttock covered with merplex dressing and 5 small ulcers on BLE, which were covered with bactroban and bandaid. Denies needs at this time. Call light within reach, will continue to monitor
--- NOTE | 2019-01-28 20:59 | NUR ---
Called pharmacy per request with Vanc of 29.29, per pharmacy, hold vanc elle and she will order new labs for tomorrow.
--- NOTE | 2019-01-28 21:20 | NUR ---
Vancomycin Follow-up Pharmacy Note Current regimen: Vancomycin 1.5 gm IV q8h Vancomycin trough: 31.69 Adjustments: Will hold Vancomycin and check a random Vancomycin level with 01/29/19 morning labs. Pharmacy will continue to monitor and restart a Vancomycin regimen based on levels.
[2019-01-28 23:29] VITALS: BP 121/68; PULSE 113; TEMP 98.8
--- NOTE | 2019-01-29 01:30 | NUR ---
Colostomy bag with no output.
--- NOTE | 2019-01-29 02:43 | NUR ---
pt sitting up in bed shaking side rails off and on. patient noted to doze off for a few seconds and wake back up.
[2019-01-29 03:56] VITALS: BP 113/45; PULSE 81; TEMP 99.4
--- NOTE | 2019-01-29 03:57 | NUR ---
Seziure precaution pads put in place as patient keeps falling asleep sitting up and having jerking/spasm movements of head and arms.
--- NOTE | 2019-01-29 06:06 | NUR ---
Pt sleeping in bed, unable to keep eyes open. Nursing staff has turned pt q2 hours. Currently laying on right side.
--- NOTE | 2019-01-29 07:00 | NUR ---
Reported onto PACO Sullivan.
[2019-01-29 07:10] VITALS: BP 137/49; PULSE 92; TEMP 98.8
[2019-01-29 07:15] LABS: MEAN CELL VOLUME 75 fl (80.0-100.0); MEAN CORPUSCULAR HGB CONC 31 g/dl (33.0-37.0); MEAN PLATELET VOLUME 9.3 fl (7.4-10.4); PLATELET COUNT 431 K/mm3 (130-400); RED BLOOD COUNT 3.92 M/mm3 (4.20-5.60); REDCELL DISTRIBUTION WIDTH-CV 18.8 % (11.5-14.5)
[2019-01-29 07:23] LABS: HEMATOCRIT 29.4 % (42.0-52.0); MEAN CORPUSCULAR HEMOGLOBIN 23 pg (27.0-31.0)
[2019-01-29 07:24] LABS: CALCIUM 7.9 mg/dL (8.4-10.2); CREATININE, serum 0.72 (0.66-1.25); POTASSIUM 3.6 mmol/L (3.4-5.0)
[2019-01-29 07:53] LABS: BAND 4 % (0-10); EOSINOPHIL 1 % (0-4); LYMPHOCYTE 4 % (20.0-51.0); NEUTROPHILS 85 % (42.0-75.2)
[2019-01-29 07:54] LABS: ANISOCYTOSIS 1+; HYPOCHROMIA 3+; PLATELET ESTIMATE INCREASED (NORMAL)
--- NOTE | 2019-01-29 08:00 | NUR ---
PATIENT IS A&O BUT VERY EMOTIONAL THIS AM. PATIENT IS CRYING TO HIS SISTER ON THE PHONE. HE IS JUST TIRED ON BEING IN THE HOSPITAL, TIRED OF BEING SICK, AND TIRED ON NOT BEING ABLE TO EAT. PATIENT REPORTS DECREASED OUTPUT FROM HIS COLOSTOMY IN THE LAST 24 HOURS. PATIENT HAS INTERMITTENT NAUSEA, NO REPORTED THIS AM. BOWL SOUNDS ARE HYPOACTIVE. SUPER PUBIC MORSE TO DD WITH YELLOW SEDIMENT URINE NOTED. IV FLUIDS INFUSING VIA PUMP INTO RIGHT IJ. PATIENT ALSO RECEIVING IV ABX. GAVE AM MEDS WITH SIPS. PATIENT VERY CONCERNED ABOUT DECREASED STOOL. GAVE SMALL DOSE OF MIRILAX PER ORDERS. PATIENT TOLERATED WELL. HEAD TO TOE ASSESSMENT COMPLETE. NURSING SPENT A LOT OF TIME ENCOURAGING PATIENT AND LETTING HIM KNOW ITS NORMAL TO GET FRUSTERATED AND ITS OKAY TO CRY. PATIENT WANTED TO LEAVE AMA BUT AGREES HE WILL STAY AND KEEP TRYING. PATIENT WANTING TO GET OUT OF BED. HIS IS A PARAPLEGIC, PT AT BEDSIDE TO ASSIST HIM TO BEDSIDE CHAIR. PATIENT HAPPY ABOUT GETTING UP. NO OTHER NEEDS AT THIS TIME. STUDENT NURSE WORKING WITH PATIENT, SEE CHARTING.
--- NOTE | 2019-01-29 10:30 | NUR ---
HOSPITALIST CARE TEAM ROUNDING. SEE ORDERS.
--- NOTE | 2019-01-29 10:31 | NUR ---
Shift assessment completed. Pt stated back pain 10/05. Pt dozing off for a few seconds then wakes back up. Remains NPO denies nausea. Tele intact. O2 nasal cannula running at 2L. Central line to right subclavian intact, no signs of phlebitis or infiltration. Abdominal mahendra CDI. Suprapubic catheter intact to allen with cloudy yellow urine. Bandaids to BLE CDI.
[2019-01-29 10:34] VITALS: BP 116/69; PULSE 107
[2019-01-29 10:53] VITALS: BP 113/52; PULSE 96; TEMP 98
--- NOTE | 2019-01-29 11:12 | NUR ---
Reported off to PACO Sullivan.
[2019-01-29 11:23] LABS: INR 1.4 (0.8-3.0); PROTHROMBIN TIME 16.4 SECONDS (9.7-12.8)
--- NOTE | 2019-01-29 11:50 | NUR ---
Vancomycin Follow-up Pharmacy Note Current regimen: Dosing based on levels Vancomycin random level: 19.31 Adjustments: Will restart Vancomycin 1.25 gm IV q12h. Pharmacy will check a Vancomcyin trough prior to 3rd dose on 12/31/18. Will continue to [facility].
--- NOTE | 2019-01-29 12:10 | NUR ---
PATIENT GOING DOWN FOR THORACENTESIS.
[2019-01-29 15:22] VITALS: BP 120/70; PULSE 71; TEMP 98.7
--- NOTE | 2019-01-29 16:50 | NUR ---
Oral Surgery Physician faxed updates to Madhavi at [facility]. SW to continue to follow.
--- NOTE | 2019-01-29 18:30 | NUR ---
PATIENT SUDDENLY SAT UP IN BED AFTER BEING LETHARGIC ALL AFTERNOON AND STARTED SCREAMING "HELP ME". PATIENT WAS DIFFICULT TO CALM OR GET ANY DIRECT ANSWERS FROM. HE DID FINALLY SAY HIS BACK WAS HURTING WHICH IS CHRONIC FOR HIM. PATIENT WAS LEANING OVER BED RAILS AND REQUIRED SEVERAL NURSES TO KEEP HIM IN BED. PATIENT WAS GRABBING AT NURSES AND SCREAMING FOR HELP. HOSPITALIST CALLED. VSS. PATIENT STILL HAVING NO OUTPUT FROM COLOSTOMY. PATIENT HAS BEEN NPO FOR 2 DAYS. CLINDIMIX INFUSING INTO RIGHT IJ. PATIENT PUTTING LOTS OF PRESSURE ON HIS COLOSTOMY BAG AND SUPERPUBIC MORSE. MORSE SITE STARTED LEAKING A SMALL AMOUNT AROUND MORSE SITE. ABD IS DISTENDED AND RED AROUND INCISION MARLINE. BOWL SOUNDS ARE VERY HYPO. PATIENT DENIES N/V. LAB AT BEDSIDE. CT AT BEDSIDE. RT UNABLE TO GET ABG'S.
[2019-01-29 18:40] VITALS: BP 128/62; PULSE 106
--- NOTE | 2019-01-29 19:25 | NUR ---
PATIENT BACK IN ROOM FROM CT. TAPER PRINTED CIRCUIT LAYOUT NURSE AT BEDSIDE. AWAITING RESULTS. NOTIFIED.
[2019-01-29 19:30] LABS: HEMATOCRIT 29.5 % (42.0-52.0); MEAN CELL VOLUME 74 fl (80.0-100.0); MEAN CORPUSCULAR HEMOGLOBIN 23 pg (27.0-31.0); MEAN CORPUSCULAR HGB CONC 31 g/dl (33.0-37.0); MEAN PLATELET VOLUME 9.1 fl (7.4-10.4); PLATELET COUNT 403 K/mm3 (130-400); RED BLOOD COUNT 3.98 M/mm3 (4.20-5.60); REDCELL DISTRIBUTION WIDTH-CV 18.8 % (11.5-14.5)
[2019-01-29 19:39] LABS: ALBUMIN 2.4 gm/dL (3.5-5.0); BILIRUBIN,TOTAL 0.4 mg/dL (0.0-1.0); CREATININE, serum 0.7 (0.66-1.25); POTASSIUM 3.8 mmol/L (3.4-5.0); TOTAL PROTEIN 5.9 gm/dL (6.4-8.2)
[2019-01-29 19:45] LABS: BAND 2 % (0-10); EOSINOPHIL 7 % (0-4); LYMPHOCYTE 12 % (20.0-51.0); METAMYELOCYTE 1 % (0-0); NEUTROPHILS 71 % (42.0-75.2); PLATELET ESTIMATE NORMAL (NORMAL)
[2019-01-29 19:47] LABS: MICROCYTOSIS 1+
[2019-01-30] VITALS: BP 145/90; PULSE 104; TEMP 98.4
[2019-01-30 03:46] VITALS: BP 157/78; PULSE 101; TEMP 98.4
[2019-01-30 06:44] LABS: BASO % 0.2 % (0.0-2.0); EOS # 0.5 (0.0-0.7); EOS % 4.2 % (0-4.0); GRAN # 9.6 (1.4-6.5); LYMPH # 1.3 (1.2-3.4); LYMPH % 10.8 % (20.0-51.0); MEAN CELL VOLUME 76 fl (80.0-100.0); MEAN CORPUSCULAR HGB CONC 30 g/dl (33.0-37.0); MEAN PLATELET VOLUME 9.4 fl (7.4-10.4); MONO # 0.7 (0.1-0.6); PLATELET COUNT 436 K/mm3 (130-400); REDCELL DISTRIBUTION WIDTH-CV 19.1 % (11.5-14.5)
[2019-01-30 06:54] LABS: HEMATOCRIT 29.5 % (42.0-52.0); HEMOGLOBIN 8.8 g/dl (13.5-18.0); MEAN CORPUSCULAR HEMOGLOBIN 23 pg (27.0-31.0)
[2019-01-30 06:56] LABS: CALCIUM 8.1 mg/dL (8.4-10.2); CREATININE, serum 0.61 (0.66-1.25); POTASSIUM 3.7 mmol/L (3.4-5.0)
[2019-01-30 08:00] VITALS: BP 127/67; PULSE 103; TEMP 99
--- NOTE | 2019-01-30 10:00 | NUR ---
Patient has been resting in bed this morning. Patient rouses with some effort and falls back asleep quickly. Patient rouses enough to take his PO medications, but vomits a small amount with some medications evident in the emesis. Patient then states his nausea is better, but complains of being cold. Gave patient warmed blankets and patient goes back to sleep. Suprapubic catheter to left abdomen, insertion site is well approximated and free of redness or drainage, suture intact; dressing is CDI. Midline incision is well approximated and TEOFILO, mahendra intact. Colostomy to right abdomen, no output yet this shift. Patient and deny further needs at this time, call light within reach.
[2019-01-30 10:22] LABS: ALBUMIN 2.3 gm/dL (3.5-5.0); BILIRUBIN,TOTAL 0.4 mg/dL (0.0-1.0); CALCIUM 8.1 mg/dL (8.4-10.2); CREATININE, serum 0.63 (0.66-1.25); MAGNESIUM 1.8 mg/dL (1.6-2.3); PHOSPHOROUS 3.5 mg/dL (2.5-4.5); POTASSIUM 3.7 mmol/L (3.4-5.0); TOTAL PROTEIN 5.8 gm/dL (6.4-8.2)
[2019-01-30 10:29] LABS: PRE ALBUMIN 3.9 mg/dL (17.6-36.0)
--- NOTE | 2019-01-30 12:00 | NUR ---
PATIENT SLEEPING SOUNDLY WITH SISTER AT BEDSIDE. NO NEEDS.
[2019-01-30 12:30] VITALS: BP 138/70; PULSE 98; TEMP 98
--- NOTE | 2019-01-30 13:54 | NUR ---
Craft Demonstrator attended rounds with the team. ASHA faxed updates to [facility] and contacted [facility] who advised she will need an estimated discharge date due to patient payer source, which is [employer]. [facility] states she will need prior authorization. Madhavi also reports with patient payer source, he may be responsible for the cost of oral medications during stay at . ASHA will continue to follow.
[2019-01-30 15:46] VITALS: BP 119/70; PULSE 114; TEMP 100.7
--- NOTE | 2019-01-30 16:11 | NUR ---
Barrel Builder contacted [facility] ALEXAND[facility] who advised there was no target discharge date at this point but that she would provide SW update to provide to [facility]. SW met with patient and patient's sister, Cindy to provide update on placement to [facility] and the potential for out of pocket costs per communication with Madhavi, Lawyer Probate at [facility]. SW to continue to follow.
[2019-01-31] VITALS (7 sets, daily range): BP systolic 98–138; BP diastolic 53–71; PULSE 68–99; TEMP 98.1–100.1
--- NOTE | 2019-01-31 02:11 | NUR ---
PATIENT DOING WELL TONIGHT. ALERT AND ORIENTED. TOOK SCHEDULED MEDICATIONS WITH SIPS OF WATER. ULCER TO BUTTOCKS WAS DRAINING AND PATIENT REQUESTED DRESSING TO BE CHANGED. WET TO DRY DRESSING WITH MEPOPLEX AND TEGADERM DONE. MEPOPLEX PLACED ON LOWER BACK FOR STAGE 2 PRESSURE ULCER. DRESSING TO SUPRAPUBIC CATHETER CHANGED. REDNESS NOTED TO MIDLINE INCISION WITH MARLINE. BOWEL SOUNDS HYPOACTIVE. C/O PAIN TO LOWER BACK. REQUESTS REPOSITIONING FREQUENTLY. NO FURTHER NEEDS AT THIS TIME. WILL CONTINUE TO MONITOR.
[2019-01-31 07:17] LABS: BASO % 0.2 % (0.0-2.0); EOS # 0.3 (0.0-0.7); EOS % 3.3 % (0-4.0); GRAN # 7.3 (1.4-6.5); GRAN % 72.8 % (42.2-75.2); HEMATOCRIT 28.6 % (42.0-52.0); HEMOGLOBIN 8.5 g/dl (13.5-18.0); LYMPH # 1.4 (1.2-3.4); LYMPH % 14.4 % (20.0-51.0); MEAN CELL VOLUME 76 fl (80.0-100.0); MEAN CORPUSCULAR HEMOGLOBIN 23 pg (27.0-31.0); MEAN CORPUSCULAR HGB CONC 30 g/dl (33.0-37.0); MEAN PLATELET VOLUME 9.6 fl (7.4-10.4); MONO # 0.9 (0.1-0.6); MONO % 8.6 % (1.7-9.3); PLATELET COUNT 448 K/mm3 (130-400); RED BLOOD COUNT 3.75 M/mm3 (4.20-5.60); REDCELL DISTRIBUTION WIDTH-CV 19.1 % (11.5-14.5)
[2019-01-31 07:23] LABS: ALBUMIN 2.2 gm/dL (3.5-5.0); BILIRUBIN,TOTAL 0.4 mg/dL (0.0-1.0); CALCIUM 7.8 mg/dL (8.4-10.2); CREATININE, serum 0.52 (0.66-1.25); MAGNESIUM 1.9 mg/dL (1.6-2.3); PHOSPHOROUS 3.3 mg/dL (2.5-4.5); POTASSIUM 3.5 mmol/L (3.4-5.0); TOTAL PROTEIN 5.7 gm/dL (6.4-8.2)
--- NOTE | 2019-01-31 08:59 | NUR ---
Patient resting in bed at this time. Patient is alert and oriented this morning, answers questions appropriately. Suprapubic catheter in place, no drainage noted form insertion site, gauze dressing CDI and suture intact. Colostomy to right abomen, no drainage visible and ostomy appliance in place with a good seal; small amount of stool visible at the end of the colon, has not entered bag yet. Central line to right IJ in place, sutures intact and dressing CDI. Patient was able to take oral medications today with no nausea or vomiting. Midline incision is well approximated, mahendra intact and DRUM TESTER; there is a small amount of redness on staple line and a scant amount of dried yellow drainage around a few of the mahendra. Abdomen remains distended and firm, bowel sounds are hypoactive in all quadrants. Patient states he is not ready to turn so his dressing on coccyx can be changed, will check again at a later time. Patient denies further needs, call light within reach.
--- NOTE | 2019-01-31 16:33 | NUR ---
Lightout Examiner attended rounds with the team. Patient likely will be in hospital through the weekend. SW met with patient who advised he was concerned about potential out of pocket costs if he went to [facility]. ASHA faxed updates to [facility] and spoke with Madhavi who advised she would continue to look into potential out of pocket costs and provide SW update when she had one. ASHA contacted patient's sister, Cindy to provide update. SW to continue to follow.
--- NOTE | 2019-01-31 18:39 | NUR ---
Patient has done well throughout the day. Changed dressing to ulcer, wet to dry. Bandaids to bialteral lower extremitied changed in the AM. TPN has been infusing per orders. Patient states he has been passing gas throughout the day, small amount of stool present in ostomy appliance. Suprapubic catheter to allen bag with clear yellow urine in place. Tolerating clear liquid diet without difficulties. Reported off to electrical electronics technician.
--- NOTE | 2019-02-01 01:30 | NUR ---
PATIENT DOING WELL THROUGHOUT NIGHT. TOOK SCHEDULED MEDICATIONS WITHOUT DIFFICULTY. STAGE 4 ULCER TO BUTTOCK IS DRESSED, NO DRAINAGE NOTED. MEPOPLEX TO COCCYX. SUPRAPUBIC DRESSING CDI, NO DRAINAGE NOTED. BOWEL SOUNDS HYPOACTIVE. TURNING PER PATIENT REQUEST. NO FURTHER NEEDS AT THIS TIME. WILL CONTINUE TO MONITOR.
[2019-02-01 02:57] VITALS: BP 120/53; PULSE 73; TEMP 98.8
[2019-02-01 06:22] LABS: BASO % 0.2 % (0.0-2.0); EOS # 0.4 (0.0-0.7); EOS % 4.6 % (0-4.0); GRAN # 5.7 (1.4-6.5); GRAN % 67.4 % (42.2-75.2); LYMPH # 1.4 (1.2-3.4); MEAN CELL VOLUME 76 fl (80.0-100.0); MEAN CORPUSCULAR HGB CONC 30 g/dl (33.0-37.0); MEAN PLATELET VOLUME 9.4 fl (7.4-10.4); MONO # 0.9 (0.1-0.6); PLATELET COUNT 432 K/mm3 (130-400); RED BLOOD COUNT 3.86 M/mm3 (4.20-5.60)
[2019-02-01 06:34] LABS: HEMATOCRIT 29.4 % (42.0-52.0); HEMOGLOBIN 8.7 g/dl (13.5-18.0); MEAN CORPUSCULAR HEMOGLOBIN 23 pg (27.0-31.0)
[2019-02-01 06:42] LABS: ALBUMIN 2.3 gm/dL (3.5-5.0); BILIRUBIN,TOTAL 0.4 mg/dL (0.0-1.0); CALCIUM 7.9 mg/dL (8.4-10.2); CREATININE, serum 0.48 (0.66-1.25); MAGNESIUM 2.1 mg/dL (1.6-2.3); PHOSPHOROUS 3.1 mg/dL (2.5-4.5); POTASSIUM 4.3 mmol/L (3.4-5.0); TOTAL PROTEIN 5.7 gm/dL (6.4-8.2)
[2019-02-01 08:23] VITALS: BP 128/63; PULSE 91; TEMP 98.2
[2019-02-01 12:00] VITALS: BP 126/61; PULSE 72; TEMP 98.3
[2019-02-01 15:47] VITALS: BP 123/58; PULSE 81; TEMP 98.7
[2019-02-01 20:42] VITALS: BP 147/69; PULSE 81; TEMP 98.2
[2019-02-02 04:00] VITALS: BP 142/64; PULSE 84; TEMP 98.5
--- NOTE | 2019-02-02 06:24 | NUR ---
PT IN BED. 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 PRN OXYCODONE FOR PAIN.
[2019-02-02 07:00] LABS: CALCIUM 8.1 mg/dL (8.4-10.2); CREATININE, serum 0.51 (0.66-1.25); PHOSPHOROUS 3.3 mg/dL (2.5-4.5); POTASSIUM 4.3 mmol/L (3.4-5.0)
[2019-02-02 07:47] VITALS: BP 122/76; PULSE 90; TEMP 98.5
[2019-02-02 09:09] LABS: BASO % 0.3 % (0.0-2.0); EOS # 0.4 (0.0-0.7); EOS % 3.7 % (0-4.0); GRAN # 6.8 (1.4-6.5); GRAN % 67.3 % (42.2-75.2); LYMPH # 1.8 (1.2-3.4); LYMPH % 17.3 % (20.0-51.0); MEAN CELL VOLUME 76 fl (80.0-100.0); MEAN CORPUSCULAR HGB CONC 30 g/dl (33.0-37.0); MEAN PLATELET VOLUME 10.2 fl (7.4-10.4); MONO # 1.1 (0.1-0.6); PLATELET COUNT 525 K/mm3 (130-400); RED BLOOD COUNT 4.19 M/mm3 (4.20-5.60); REDCELL DISTRIBUTION WIDTH-CV 18.9 % (11.5-14.5)
[2019-02-02 09:17] LABS: HEMATOCRIT 31.7 % (42.0-52.0); HEMOGLOBIN 9.5 g/dl (13.5-18.0); MEAN CORPUSCULAR HEMOGLOBIN 23 pg (27.0-31.0)
[2019-02-02 11:19] VITALS: BP 118/50; PULSE 90; TEMP 98.9
[2019-02-02 16:05] VITALS: BP 118/58; PULSE 91; TEMP 98.3
--- NOTE | 2019-02-02 18:00 | NUR ---
Afebrile. Complained of leg spasms and back pain. Repositions in bed with assist. Pain improved with scheduled and prn meds. Eating well.
[2019-02-02 20:12] VITALS: BP 135/64; PULSE 92; TEMP 97.9
--- NOTE | 2019-02-02 21:30 | NUR ---
Pt. laying in bed at this time. Pt. is A&OX3, assessment complete. TLC to rt. IJ CDI. Pt. dressings go rt. and lt. buttock pressure ulcers CDI. Pt. denies pain or other needs, call light within reach.
[2019-02-03] VITALS (7 sets, daily range): BP systolic 111–123; BP diastolic 45–89; PULSE 95–110; TEMP 97.8–100
--- NOTE | 2019-02-03 06:45 | NUR ---
awake resting in bed, bedside shift report received from PACO Urena
--- NOTE | 2019-02-03 08:30 | NUR ---
resting in bed after breakfast, am meds given, physical therapy in to work with patient
--- NOTE | 2019-02-03 09:10 | NUR ---
Dr Whipple and care team in to see patient
--- NOTE | 2019-02-03 09:32 | NUR ---
repositioned to left side per pateint's request
--- NOTE | 2019-02-03 10:04 | NUR ---
ASHA attended clinical rounds. The patient is ready to discharge today. ASHA notified Madhavi at [facility]. Madhavi requested updates and reports that she will send these off to insurance for prior-auth. ASHA faxed Madhavi updates. Madhavi reports that the patient would be responsible for all oral meds. ASHA informed the patient. The patient verbalized understanding and states that he is agreeable to this. ASHA contacted and updated the patient's niece, Solange. Solange reports that the patient's sister, Cindy, is in the hospital; but that they would still be able to provide transportation for the patient. ASHA awaiting prior-auth and will continue to follow.
--- NOTE | 2019-02-03 11:00 | NUR ---
resting in bed on right side watching TV
--- NOTE | 2019-02-03 12:00 | NUR ---
sitting up in bed and has had lunch
--- NOTE | 2019-02-03 13:00 | NUR ---
dressing to left buttock pressure ulcer changed, has large amount drainage on dressing, dressing removed and ulcer packed with wet gauze, covered with ABD and taped in place, has pink foam dressing an gauze to right buttock and these are CD&I and left in place
--- NOTE | 2019-02-03 14:25 | NUR ---
c/o increased back pain and requesting pain med, medicated with roxicodone 10mg po, resting on right side
--- NOTE | 2019-02-03 15:18 | NUR ---
Madhavi, at [facility], reports that they have received authorization from the patient's insurance; but would now not be able to take him until tomorrow. ASHA informed the clinical team of this. ASHA updated the patient and his niece, Solange. Solange reports that they will have transportation for the patient tomorrow. SW to continue to follow.
--- NOTE | 2019-02-03 17:44 | NUR ---
sitting up in bed eating supper, states his stomach has started hurting bad, will finish eating and then assess abdomen
--- NOTE | 2019-02-03 18:00 | NUR ---
had supper and laid back in bed to assess abdomen, is slightly distended but soft and has small amount stool in colostomy
--- NOTE | 2019-02-03 19:07 | NUR ---
bedside shift report given to PACO Villarreal
--- NOTE | 2019-02-04 00:53 | NUR ---
Assessment complete. Repositioned. Denies needs.
--- NOTE | 2019-02-04 02:39 | NUR ---
02/03/19 @2034 c/o nausea, belching. Requested basin "in case I throw up". PRN Zofran admin for nausea.
--- NOTE | 2019-02-04 02:41 | NUR ---
@0115 called for "help". Vomitted in basin @400 ml liquid c some food particles. PRN Zofran admin. Stated he felt "a lot better" post emesis.
[2019-02-04 04:09] VITALS: BP 118/67; PULSE 97; TEMP 98.8
--- NOTE | 2019-02-04 06:06 | NUR ---
02/03/19 @2154 PRN acetaminophen admin for fever.
--- NOTE | 2019-02-04 07:31 | NUR ---
Report from Cherelle ANTONIO>
[2019-02-04 07:49] VITALS: BP 128/82; PULSE 108; TEMP 98
[2019-02-04] MEDS ORDERED: AMOXICILLIN 8751 TAB PO (07:52)
[2019-02-04] MEDS ORDERED: TYLENOL 325MG325 MG PO (07:58)
[2019-02-04] MEDS ORDERED: COLACE 100100 MG/CAP PO (07:59)
[2019-02-04] MEDS ORDERED: SENOKOT S 50 MG1 TAB PO (07:59)
[2019-02-04] MEDS ORDERED: LIORESAL20 MG PO (10:20)
[2019-02-04] MEDS ORDERED: ZANAFLEX 4MG TAB4 MG PO (10:23)
[2019-02-04] MEDS ORDERED: Lidocaine 4% Patch TP (10:24)
--- NOTE | 2019-02-04 11:01 | NUR ---
The patient is to discharge today, 02/04, to [facility]. SW contacted and updated the patient's niece, Solange. Transportation is to be by private vehicle, via the patient's friend. No additional needs at this time.
--- NOTE | 2019-02-04 12:38 | NUR ---
REPORT CALLED TO ARCHIE SPANN RN. PT LEFT IN POV. DRESSINGS X5 CHANGED LG WOUNDS TO COCCYX WET TO DRY DRESSINGS PLACED. BANDAID PLACED TO BLE WOUNDS. ASSISTED PT TO DRESS AFTER DISCONTINUED IJ. PT TOLERATED WELL TIP INTACT.
== END 2019-02-04 12:15 | disposition swing bed (61) | DRG 853 ==
LOC: SURG 08:42 → IMCU 08:53 → SURG 10:55 → ICU 10:55 → SURG 01-23 16:07
PROVIDERS: Family Medicine; Internal Medicine; Internal Medicine Pulmonary Disease; Nurse Anesthetist, Certified Registered; Nurse Practitioner Family; Physician Assistant; Radiology Diagnostic Radiology; Surgery; ADMIT Hospitalist
PROC: 0DB80ZZ Excision of Small Intestine, Open Approach (ICD-10-PCS; principal; 2019-01-22 15:00)
PROC: 05HM33Z Insertion of Infusion Device into Right Internal Jugular Vein, Percutaneous Approach (ICD-10-PCS; 2019-01-22 15:00)
PROC: B543ZZA Ultrasonography of Right Jugular Veins, Guidance (ICD-10-PCS; 2019-01-22 15:00)
DX: A41.9 Sepsis, unspecified organism (principal); L89.94 Pressure ulcer of unspecified site, stage 4; K63.1 Perforation of intestine (nontraumatic); J69.0 Pneumonitis due to inhalation of food and vomit; J96.00 Acute respiratory failure, unspecified whether with hypoxia or hypercapnia; G82.20 Paraplegia, unspecified; E87.2 Acidosis; K56.7 Ileus, unspecified; J90 Pleural effusion, not elsewhere classified; E87.3 Alkalosis; G89.29 Other chronic pain; R65.20 Severe sepsis without septic shock; F19.10 Other psychoactive substance abuse, uncomplicated; F12.10 Cannabis abuse, uncomplicated; F17.210 Nicotine dependence, cigarettes, uncomplicated; N31.9 Neuromuscular dysfunction of bladder, unspecified; I25.10 Atherosclerotic heart disease of native coronary artery without angina pectoris; J44.9 Chronic obstructive pulmonary disease, unspecified; B19.20 Unspecified viral hepatitis C without hepatic coma; E87.6 Hypokalemia; E16.2 Hypoglycemia, unspecified; Z95.818 Presence of other cardiac implants and grafts; Z93.3 Colostomy status; Z87.442 Personal history of urinary calculi; I25.2 Old myocardial infarction; Z79.82 Long term (current) use of aspirin; Z79.02 Long term (current) use of antithrombotics/antiplatelets
CPT/HCPCS: 99223-AI; 99231-AI; 99232-AI; 99233-AI; 99239; A4216; A4217; A4314; C1751; C9113; J0330; J0610; J1450; J1644; J1885; J1940; J2185; J2250; J2270; J2370; J2405; J2543; J2704; J3010; J3370; J3411; J3475; J3480; J7040; J7050; J7120; J7121; J7131; Q9967

== ENCOUNTER 2019-02-13 20:35 | Inpatient (IN) | payer MEDICAID ==
[~2019-02-13] VITALS: Ht 185.4 cm; Wt 86.0 kg
[2019-02-13] VITALS (89 sets, daily range): O2SAT 62–98
[~2019-02-13 20:35] MED LIST changes: +COLACE 100100 MG/CAP PO; +Lidocaine 4% Patch TP; +SENOKOT S 50 MG1 TAB PO; +TYLENOL 325MG325 MG PO
--- NOTE | 2019-02-13 20:39 | NUR ---
Report received from Irwin at [facility]. Patient left their facility via personal vehicle around 1819. Patient arrived here at 2038 with daughter via wheelchair as well as with lock box of medications, cellphone, black back of personal belongins, and clothing. Patient required assistance to slide from wheelchair to bed but tolerated well. IV present on admission, patient states he ate prior to coming to this facility but hasn't had any nausea or vomiting since noon today.
--- NOTE | 2019-02-13 21:45 | NUR ---
Called to notify Dr. Saba of patient presence on unit at 2133. Called Kelsie for admission clarification at 2135. Patient became verbally aggressive with staff about needing pain medicine. Patient threatened to leave if staff did not give him his home medications or something for pain. Numerous staff members attempted to reason with patient. Patient also called his daughter, who discussed the situation with staff via telephone. Patient educated regarding need for NPO status and current order for any medications from admitting provider.
[2019-02-14] VITALS (563 sets, daily range): BP systolic 120–157; BP diastolic 62–89; PULSE 62–100; TEMP 97.8–99.4; O2SAT 67–99
[2019-02-14 01:51] LABS: MAGNESIUM 1.4 mg/dL (1.6-2.3); PHOSPHOROUS 3.7 mg/dL (2.5-4.5)
[2019-02-14] MEDS ORDERED: LIORESAL20 MG PO (01:57)
[2019-02-14] MEDS ORDERED: ROXICODONE30 MG PO ×2 (01:58)
[2019-02-14] MEDS ORDERED: ATROVENT I0.2 MG/1 M IH (01:59)
--- NOTE | 2019-02-14 02:00 | NUR ---
Dressing applied to coccyx wound. Large stage IV wound noted, patient sees wound care in [place].
--- NOTE | 2019-02-14 04:00 | NUR ---
Patient resting in bed with eyes closed. IV infusing wellm suprapubic allen draining well, call light and personal belongings within reach, will continue to monitor.
--- NOTE | 2019-02-14 07:30 | NUR ---
Report received from PACO Delgado. Patient currently sleeping. Care taken over at this time.
[2019-02-14 08:23] LABS: MEAN CELL VOLUME 76 fl (80.0-100.0); MEAN CORPUSCULAR HGB CONC 30 g/dl (33.0-37.0); MEAN PLATELET VOLUME 8.5 fl (7.4-10.4); PLATELET COUNT 398 K/mm3 (130-400); RED BLOOD COUNT 4.28 M/mm3 (4.20-5.60); REDCELL DISTRIBUTION WIDTH-CV 20.4 % (11.5-14.5)
[2019-02-14 08:40] LABS: ALBUMIN 2.5 gm/dL (3.5-5.0); BILIRUBIN,TOTAL 0.3 mg/dL (0.0-1.0); CALCIUM 8.1 mg/dL (8.4-10.2); CREATININE, serum 0.67 (0.66-1.25); POTASSIUM 3.9 mmol/L (3.4-5.0); TOTAL PROTEIN 6.1 gm/dL (6.4-8.2)
[2019-02-14 08:44] LABS: HEMATOCRIT 32.6 % (42.0-52.0); HEMOGLOBIN 9.7 g/dl (13.5-18.0); MEAN CORPUSCULAR HEMOGLOBIN 23 pg (27.0-31.0)
[2019-02-14 09:41] LABS: BAND 3 % (0-10); EOSINOPHIL 5 % (0-4); LYMPHOCYTE 15 % (20.0-51.0); METAMYELOCYTE 1 % (0-0); MYELOCYTE 1 % (0-0); NEUTROPHILS 68 % (42.0-75.2); PLATELET ESTIMATE NORMAL (NORMAL)
--- NOTE | 2019-02-14 11:00 | NUR ---
Patient's niece Ann, is here. She is updated on plan of care. Patient is upset that he is not able to eat or drink. He states that he wants to go home and after i confirm that there is stool in his colostomy bag, he is again upset that he is in the hospital. "Set me home!" he says. I respond that the doctor is doing his rounds and he will be seen soon.
--- NOTE | 2019-02-14 14:48 | NUR ---
Basket Braider met with patient to discuss discharge planning. Patient was recently hospitalized at [facility] from 01/22/19-02/04/19 and was discharged to [facility] [facility]. Patient was discharged from [facility] on Sunday and was seen then by his primary care physician, Dr. Danielle. Patient lives alone in [place] and receives daily assistance from his friends, Merly and Ashu. Patient reports Merly visits him daily and picks up his medications from [facility]. Patient states Ashu also comes out daily to do stretches with patient. Patient is wheelchair bound and states he also has an additional electric wheelchair, but that it's not very fast. Patient states he receives wound care from [facility] and his last appointment was Sunday. Patient does not have Advance Directives and was not interested in completing them at this time. SW contacted patient's sister, Cindy (ph#[phone]) who states patient has plenty of help at home. SW to continue to follow to ensure safe discharge.
--- NOTE | 2019-02-14 15:13 | NUR ---
REPORT CALLED TO PACO RYAN. PATIENT WILL TRANSFER TO ROOM 327 SOON
--- NOTE | 2019-02-14 18:28 | NUR ---
Patient has done well since arrival from ICU. dressing to stage 4 ulcer on left buttock changed, wet to dry. Patient has suprapubic catheter in place with clear yellow urine in bag. Sacral ulcer noted. Multiple small wounds noted on BLE. Previous suprapubic catheter site with drainage present. Requested nicotine patch this afternoon, given per orders. Denies further needs at this time.
--- NOTE | 2019-02-14 20:00 | NUR ---
Report received. 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 A&Ox3. Assessment complete. VS stable. Colostomy bag changed at this time-loose BM x3-bag is full. Has been dumped x1 in last 20 minutes as well. Suprapubic cath with clear yellow urine. Denies nausea/pain/shortness of breath. Repositioned in bed with assist x2. IV to left FA-Fluids infusing without difficulty. Plan of care discussed for dressing change later this shift. Denies questions or concerns. Call light in reach. Bed in low position/wheels locked. Will monitor.
[2019-02-15 00:44] VITALS: BP 135/71; PULSE 88; TEMP 98.8
[2019-02-15 04:00] VITALS: BP 149/72; PULSE 87; TEMP 98
--- NOTE | 2019-02-15 05:00 | NUR ---
Has rested most of this shift. Requested pain meds x2. Has had two BMs to colostomy-passing gas. Has tolerated diet. Denies needs at this time. Repositioned with pillow support. Call light in reach. Will monitor.
--- NOTE | 2019-02-15 08:00 | NUR ---
Patient in bed resting. Alert and oriented x 3. Shift assessment complete. Ostomy to RLQ with stool present. Patient states he has had several BMs overnight and this AM. Suprapubic catheter to allen bag with clear yellow urine present. Dressing to Left buttock ulcer with drainage present. Wound to midline incision site with yellow drainage present. Assisted patient to repostition.
[2019-02-15 08:35] VITALS: BP 135/73; PULSE 101; TEMP 99.1
[2019-02-15 09:17] LABS: BASO % 0.4 % (0.0-2.0); EOS # 0.3 (0.0-0.7); EOS % 4.2 % (0-4.0); GRAN # 4.6 (1.4-6.5); GRAN % 59.8 % (42.2-75.2); LYMPH # 2.1 (1.2-3.4); LYMPH % 26.7 % (20.0-51.0); MEAN CELL VOLUME 76 fl (80.0-100.0); MEAN CORPUSCULAR HGB CONC 30 g/dl (33.0-37.0); MONO # 0.6 (0.1-0.6); MONO % 8.1 % (1.7-9.3); PLATELET COUNT 418 K/mm3 (130-400); RED BLOOD COUNT 4.35 M/mm3 (4.20-5.60); REDCELL DISTRIBUTION WIDTH-CV 20.7 % (11.5-14.5)
[2019-02-15 09:31] LABS: CREATININE, serum 0.49 (0.66-1.25); POTASSIUM 3.4 mmol/L (3.4-5.0)
[2019-02-15 10:02] LABS: HEMATOCRIT 33.1 % (42.0-52.0); HEMOGLOBIN 9.8 g/dl (13.5-18.0); MEAN CORPUSCULAR HEMOGLOBIN 23 pg (27.0-31.0)
--- NOTE | 2019-02-15 10:54 | NUR ---
Dressing change to left buttock ulcer, wet to dry. Continues to have drainage from ulcer.
[2019-02-15 11:46] VITALS: BP 159/93; PULSE 101; TEMP 99.3
--- NOTE | 2019-02-15 15:05 | NUR ---
Contacted Dr. Diaz, patient continues to complain of pain 8/ to lower back, chronic pain. Requests home dose of pain medications. Per physician one time dose of additional 5mg of oxycodone given to patient.
[2019-02-15 16:23] VITALS: BP 149/76; PULSE 100; TEMP 99
--- NOTE | 2019-02-15 17:20 | NUR ---
Patient has done well throughout the day. Minimal needs. Repositioned patient throughout the day. Dressings remain CDI. Stated he wanted to be discharged today or would be leaving to go home one way or another. Discharge education provided to patient. Educated on scheduling follow up appointments. All questions answered. Denies further needs at this time. Assisted patient to dress and transfer to wheelchair. INT discontinued. Patient out by wheelchair with sister and surgical staff.
== END 2019-02-15 17:29 | disposition home or self-care (01) | DRG 388 ==
LOC: IMCU 20:35 → JCC 02-14 15:57 → IMCU 02-14 15:57 → JCC 02-14 15:57
PROVIDERS: Nurse Practitioner Family; Physician Assistant
DX: K56.600 Partial intestinal obstruction, unspecified as to cause (principal); L89.224 Pressure ulcer of left hip, stage 4; G82.20 Paraplegia, unspecified; M86.9 Osteomyelitis, unspecified; N31.9 Neuromuscular dysfunction of bladder, unspecified; Z96.0 Presence of urogenital implants; G89.29 Other chronic pain; B19.20 Unspecified viral hepatitis C without hepatic coma; F17.210 Nicotine dependence, cigarettes, uncomplicated; E87.6 Hypokalemia; D64.9 Anemia, unspecified; E83.42 Hypomagnesemia; I10 Essential (primary) hypertension; I25.10 Atherosclerotic heart disease of native coronary artery without angina pectoris; S24.109S Unspecified injury at unspecified level of thoracic spinal cord, sequela; Z95.5 Presence of coronary angioplasty implant and graft; Z97.0 Presence of artificial eye; Z79.891 Long term (current) use of opiate analgesic; Z79.02 Long term (current) use of antithrombotics/antiplatelets; Z79.82 Long term (current) use of aspirin; Z88.8 Allergy status to other drugs, medicaments and biological substances; Z88.1 Allergy status to other antibiotic agents; Z88.2 Allergy status to sulfonamides
CPT/HCPCS: OP; 99223-AI; 99239; C9113; J0694; J1170; J2405; J3475; J3480; J7120

== ENCOUNTER → 2020-07-13 | Day surgery (SDC) | payer MEDICAID ==
[~2020-07-13] VITALS: Ht 185.4 cm; Wt 80.9 kg
[~2020-07-13] MED LIST changes: +ROXICODONE30 MG PO; +SENOKOT8.6 MG PO
[2020-07-13 13:40] VITALS: BP 129/58; PULSE 76; TEMP 98.6
[2020-07-13 15:15] VITALS: BP 160/80; PULSE 70
--- NOTE | 2020-07-13 15:15 | NUR ---
TO RM 8 PER CART FROM PACU. PATIENT TALKING TO STAFF AND NEICE. PATIENT WANTING TO GO HOME AND ASKING IF HE CAN GET DRESSED.
[2020-07-13 15:30] VITALS: BP 159/77; PULSE 68
--- NOTE | 2020-07-13 15:30 | NUR ---
CONTINUES TO ASK TO GO HOME. RECEIVED WATER AND TOLERATING WELL. DENIES PAIN OR DISCOMFORT AND DENIES NAUSEA OR VOMITING. MORSE PATENT WITH LIGHT CLEAR YELLOW URINE.
[2020-07-13 15:35] VITALS: BP 160/80; PULSE 71; TEMP 99.1
--- NOTE | 2020-07-13 15:40 | NUR ---
RECEIVED DISCHARGE INSTRUCTIONS AND VERBALIZED UNDERSTANDING. DISCONTINUED IV AND INT- CATHETER INTACT. FOLLOW UP APPOINTMENT MADE FOR July AT 1110
--- NOTE | 2020-07-13 16:00 | NUR ---
TRANSFERED SELF TO WC AND TRANSFERED SELF TO CAR USING A SLIDE BOARD.
--- NOTE | 2020-07-13 16:13 | NUR ---
DISCHARGED PER OWN WC WITH NURSING STAFF TO PRIVATE CAR [facility].
== END ==
LOC: SDCO 12:39
DX: N31.9 Neuromuscular dysfunction of bladder, unspecified (principal); R33.9 Retention of urine, unspecified; R32 Unspecified urinary incontinence; G82.20 Paraplegia, unspecified; H54.40 Blindness, one eye, unspecified eye; G89.29 Other chronic pain; I10 Essential (primary) hypertension; I25.10 Atherosclerotic heart disease of native coronary artery without angina pectoris; I25.2 Old myocardial infarction; J44.9 Chronic obstructive pulmonary disease, unspecified; K21.9 Gastro-esophageal reflux disease without esophagitis; F41.9 Anxiety disorder, unspecified; F32.9 Major depressive disorder, single episode, unspecified; F17.210 Nicotine dependence, cigarettes, uncomplicated; Z86.73 Personal history of transient ischemic attack (TIA), and cerebral infarction without residual deficits; Z79.82 Long term (current) use of aspirin; Z79.02 Long term (current) use of antithrombotics/antiplatelets; Z79.899 Other long term (current) drug therapy; Z79.891 Long term (current) use of opiate analgesic; Z88.1 Allergy status to other antibiotic agents; Z88.2 Allergy status to sulfonamides; Z88.8 Allergy status to other drugs, medicaments and biological substances; Z88.5 Allergy status to narcotic agent; Z95.5 Presence of coronary angioplasty implant and graft
CPT/HCPCS: A4215; J0585; J0690; J2405; J2704; J3010; J7120